=== PATIENT | male | born 1995 | race Caucasian/White ===

== ENCOUNTER 2016-07-11 19:18 | Emergency (ER) | payer SELFPAY | END 2016-07-11 20:30 | disposition left against medical advice (07) | LOC: UCCORT 19:18 | DX: J02.9 Acute pharyngitis, unspecified (principal); Z53.21 Procedure and treatment not carried out due to patient leaving prior to being seen by health care provider ==

== ENCOUNTER 2016-07-12 17:39 | Emergency (ER) | payer BC ==
[2016-07-12 19:05] VITALS: BP 135/80
--- NOTE | 2016-07-12 19:20 | UC ---
Throat Pain/Nasal Bernard HPI - HPI Summary HPI Summary: Patient arrives to with CC of tonsillitis. He was diagnosed 12 days ago in with tonsillitis and had a negative strep, negative mono at the time. Denies fever. He was placed on amoxicillin for 10 days. He improved after taking the medication for 10 days. After he discontinued the medication, he immediately felt pain again and is requesting more amoxicillin. He is experiencing erythematous and enlarged tonsils bilaterally with scant exudates. Denies difficulty swallowing. - History of Current Complaint Chief Complaint: UCGeneralIllness Stated Complaint: SORE THROAT Hx Obtained From: Patient Onset/Duration: Sudden Onset Severity: Moderate Pain Intensity: 3 Pain Scale Used: 0-10 Numeric - Epiglottits Risk Factors Epiglottis Risk Factors: Negative - Allergies/Home Medications Allergies/Adverse Reactions: Allergies Allergy/AdvReac Type Severity Reaction Status Date / Time No Known Allergies Allergy Verified 07/12/16 19:05 PMH/Surg Hx/FS Hx/Imm Hx Previously Healthy: Yes - Surgical History Surgical History: None - Social History Occupation: Employed Full-time Lives: With Family Alcohol Use: Weekly Alcohol Amount: 1-2 times a week Substance Use Type: None Smoking Status (MU): Never Smoked Tobacco - Immunization History Most Recent Influenza Vaccination: [id number] Review of Systems Constitutional: Negative Skin: Negative ENT: Sore Throat Respiratory: Negative Cardiovascular: Negative Motor: Negative Neurovascular: Negative Neurological: Negative Psychological: Negative All Other Systems Reviewed And Are Negative: Yes Physical Exam Triage Information Reviewed: Yes Appearance: Well-Appearing, No Pain Distress, Well-Nourished Vital Signs: Initial Vital Signs Temp 98.6 F 07/12/16 19:00 Pulse 57 07/12/16 19:00 Resp 15 07/12/16 19:00 BP 135/80 07/12/16 19:00 Pulse Ox 100 07/12/16 19:00 Vital Signs Reviewed: Yes Eye Exam: Normal Eyes: Positive: Conjunctiva Clear ENT: Positive: Pharyngeal erythema, Tonsillar swelling, Tonsillar exudate Dental Exam: Normal Neck exam: Normal Neck: Positive: Supple, Nontender Respiratory: Positive: Chest non-tender, Lungs clear Cardiovascular Exam: Normal Cardiovascular: Positive: RRR Bowel Sounds: Positive: Present Musculoskeletal Exam: Normal Musculoskeletal: Positive: Strength Intact Neurological Exam: Normal Psychological Exam: Normal Psychological: Positive: Normal Response To Family Skin Exam: Normal Throat Pain/Nasal Course/Dx - Course Course Of Treatment: Strep negative. D/t erythematous pharynx, enlarged tonsils and exudates, will place on amoxicillin for 7 days. Afebrile upon discharge. Denies difficulty swallowing. Uvula midline. No hoarseness, muffled voice noted. - Differential Dx/Diagnosis Differential Diagnosis/HQI/PQRI: Epiglottitis, Mononucleosis, Pharyngitis, Tonsillitis Provider Diagnoses: tonsillitis Discharge - Discharge Plan Condition: Stable Disposition: HOME Patient Education Materials: Tonsillitis (ED) Additional Instructions: Drink plenty of fluids. Tylenol 650mg three times daily as needed for fever or discomfort. Amoxicillin as prescribed. Follow up with PCP for ongoing symptoms. Please take the antibiotic as directed. You should feel better within 2 to 3 days after you start antibiotics. You may return to work or school 24 hours after you start antibiotics. If you have any questions about your medications, please do no hesitate to call or talk with your pharmacist. How can I manage my symptoms? Use lozenges, ice, soft foods, or popsicles to soothe your throat. Drink juice, milk shakes, or soup if your throat is too sore to eat solid food. Drinking liquids can also help prevent dehydration. Gargle with salt water. Mix teaspoon salt in a 1 cup of warm water and gargle. This may help reduce swelling in your throat. Do not smoke. Nicotine and other chemicals in cigarettes and cigars can cause lung damage and make your symptoms worse. Ask your healthcare provider for information if you currently smoke and need help to quit. E-cigarettes or smokeless tobacco still contain nicotine. Talk to your healthcare provider before you use these products.
== END 2016-07-12 19:33 | disposition home or self-care (01) ==
LOC: UCCORT 17:39
DX: J03.90 Acute tonsillitis, unspecified (principal)
CPT/HCPCS: 87651; 99202; G0463

== ENCOUNTER 2017-01-10 15:55 | Emergency (ER) | payer BC ==
[2017-01-10 17:50] VITALS: BP 122/75
--- NOTE | 2017-01-10 18:10 | UC ---
Skin Complaint HPI - HPI Summary HPI Summary: FOREIGN BODY LEFT HEEL X 1 DAY. ? GLASS IN HIS LEFT FOOT - History of Current Complaint Chief Complaint: UCLowerExtremity Time Seen by Provider: 01/10/17 17:52 Stated Complaint: GLASS STUCK IN FOOT Hx Obtained From: Patient Onset/Duration: Sudden Onset, Lasting Days - 1, Still Present Timing: Constant Onset Severity: Moderate Current Severity: Moderate Location: Discrete - LEFT FOOT / HEEL Character: Pain Aggravating Factor(s): Other - WALKING Associated Signs & Symptoms: Positive: Negative - Allergy/Home Medications Allergies/Adverse Reactions: Allergies Allergy/AdvReac Type Severity Reaction Status Date / Time No Known Allergies Allergy Verified 01/10/17 17:46 Home Medications: Home Medications NK [No Home Medications Reported] 01/10/17 [History Confirmed 01/10/17] Review of Systems Constitutional: Negative Skin: Negative Eyes: Negative ENT: Negative Respiratory: Negative Is Patient Immunocompromised?: No All Other Systems Reviewed And Are Negative: Yes PMH/Surg Hx/FS Hx/Imm Hx Previously Healthy: Yes - Surgical History Surgical History: None - Family History Known Family History: Negative: Diabetes - Social History Alcohol Use: None Alcohol Amount: 1-2 times a week Substance Use Type: None Smoking Status (MU): Never Smoked Tobacco - Immunization History Most Recent Influenza Vaccination: [id number] Physical Exam Triage Information Reviewed: Yes Appearance: Well-Appearing, No Pain Distress, Well-Nourished Vital Signs: Initial Vital Signs Temp 97.6 F 01/10/17 17:47 Pulse 60 01/10/17 17:47 Resp 16 01/10/17 17:47 BP 122/75 01/10/17 17:47 Pulse Ox 100 01/10/17 17:47 Vital Signs Reviewed: Yes Eyes: Positive: Conjunctiva Clear ENT Exam: Normal ENT: Positive: Normal ENT inspection, Hearing grossly normal Neck exam: Normal Neck: Positive: Supple, Nontender, No Lymphadenopathy Respiratory Exam: Normal Respiratory: Positive: Chest non-tender, Lungs clear Cardiovascular: Positive: RRR, No Murmur, Pulses Normal Skin: Positive: Other - LEFT FOOT/ HEEL : + FOREIGN BODY / GLASS, WAS REMOVED USING A SPLINTER FORCEP Course/Dx - Diagnoses Provider Diagnoses: FOREIGN BODY LEFT FOOT Discharge - Discharge Plan Condition: Stable Disposition: HOME Patient Education Materials: Soft Tissue Foreign Body (ED) Referrals: Non Staff,Doctor [Primary Care Provider] - If Needed
== END 2017-01-10 18:11 | disposition home or self-care (01) ==
LOC: UCCORT 15:55
DX: S90.852A Superficial foreign body, left foot, initial encounter (principal); W45.8XXA Other foreign body or object entering through skin, initial encounter; Y93.9 Activity, unspecified; Y92.9 Unspecified place or not applicable
CPT/HCPCS: 28190; 99211; G0463